=== PATIENT | female | born 1985 | race Asian ===

== ENCOUNTER 2017-05-25 14:27 | Emergency (ER) | payer SELFPAY ==
[2017-05-25 14:38] VITALS: BP 107/67
[2017-05-25 15:39] LABS: Urine Bacteria Absent (Absent); Urine Bilirubin Negative (Negative); Urine Glucose Negative (Negative); Urine Nitrite Negative (Negative)
--- NOTE | 2017-05-25 16:36 | RAD ---
Indication: 6 weeks 4 days gestation based on April 09, 2017 LMP. No pole conspicuous on outside ultrasound. Assess for ectopic . Comparison: No relevant prior exams available on the [facility] PACS for comparison. Technique: Transvaginal obstetrical ultrasound. Report: Solitary intrauterine gestational sac visualized deviated to the LEFT margin of the endometrium at the fundus with mean diameter of 2.4 cm corresponding to 7 weeks 4 days gestation. 0.51 cm solitary pole corresponding to 6 weeks 2 days gestation. Unremarkable 0.36 cm diameter yolk sac. movement and cardiac activity visualized with heart rate measuring 120 bpm. Small perigestational hemorrhage evident at the posterior aspect measuring up to 0.9 x 0.8 x 2.3 cm. 3. 0.3 x 1.4 x 2.5 cm RIGHT ovary with documented vascular flow is unremarkable. 3.1 x 2.0 x 1.4 cm LEFT ovary with documented vascular flow is remarkable for a unilocular 2.1 x 2.0 x 2.0 cm anechoic cyst likely representing a corpus luteum. No visualized extra ovarian adnexal region lesions evident. IMPRESSION: Solitary live intrauterine gestation with estimated gestational age of 6 weeks 4 days (AUA) and corresponding JUAN PABLO based on the ultrasound dating of January 11, 2018. Small perigestational hemorrhage. Borderline low heart rate for which clinical surveillance is suggested. Probable 2.1 cm corpus luteum cyst at the LEFT ovary. No suspicious extraovarian adnexal region lesions evident.
--- NOTE | 2017-05-25 16:57 | ED ---
- HPI Summary HPI Summary: 31F at 7w4d LMP 04/09/17 presents for u/s to r/o ectopic . had an u /s outpatient and showed abnormality on u/s so she in for u/s. Denies any abdominal pain or bleeding. denies any n/v/d/c. denies any dysuria, hematuria, flank pain, frequency, or urgency. does not have a obgyn. is returning to [facility] on Monday. - History of Current Complaint Chief Complaint: EDGeneral Stated Complaint: 7 WKS PREG/LOSE OF APPETITE/TIRED Time Seen by Provider: 05/25/17 15:00 Pain Intensity: 0 - Allergies/Home Medications Allergies/Adverse Reactions: Allergies Allergy/AdvReac Type Severity Reaction Status Date / Time No Known Allergies Allergy Verified 05/25/17 14:38 PMH/Surg Hx/FS Hx/Imm Hx Endocrine/Hematology History: Denies: Hx Anticoagulant Therapy Cardiovascular History: Denies: Hx Hypertension Infectious Disease History: No Infectious Disease History: Denies: Traveled Outside the in Last 30 Days - Family History Known Family History: Negative: Cardiac Disease - Social History Alcohol Use: None Substance Use Type: Reports: None Smoking Status (MU): Never Smoked Tobacco Review of Systems Negative: Fever Negative: Chest Pain Negative: Shortness Of Breath Negative: Abdominal Pain All Other Systems Reviewed And Are Negative: Yes Physical Exam - Physical Exam Triage Information Reviewed: Yes Vital Signs Reviewed: Yes Appearance: Positive: Well-Appearing Skin: Positive: Warm, Dry Head/Face: Positive: Normal Head/Face Inspection Eyes: Positive: Normal, Conjunctiva Clear Respiratory/Lung Sounds: Positive: Clear to Auscultation, Breath Sounds Present Cardiovascular: Positive: Normal, RRR Abdomen Description: Positive: Nontender, Soft Bowel Sounds: Positive: Present Diagnostics - Vital Signs Vital Signs Temp Pulse Resp BP Pulse Ox 05/25/17 14:31 99.0 F 71 15 107/67 100 - Laboratory Lab Results: Lab Results 05/25/17 05/25/17 Range/Units 15:25 15:30 Urine Color Straw Urine Appearance Clear Urine pH 6.0 (5-9) Ur Specific [place] 1.008 L (1.010-1.030) Urine Protein Negative (Negative) Urine Ketones Negative (Negative) Urine Blood Negative (Negative) Urine Nitrate Negative (Negative) Urine Bilirubin Negative (Negative) Urine Urobilinogen Negative (Negative) Ur Leukocyte Esterase Trace H (Negative) Urine WBC (Auto) Trace(0-5/hpf) (Absent) Urine RBC (Auto) Trace(0-2/hpf) (Absent) Ur Squamous Epith Cells Present H (Absent) Urine Bacteria Absent (Absent) Urine Glucose Negative (Negative) Urine Ascorbic Acid * H (Negative) Blood Type A Positive Lab Statement: Any lab studies that have been ordered have been reviewed, and results considered in the medical decision making process. - Ultrasound No standard instances Ultrasound Interpretation: Positive (See Comments) - IMPRESSION: Solitary live intrauterine gestation with estimated gestational age of 6 weeks 4 days (AUA) and corresponding JUAN PABLO based on the ultrasound dating of January 11, 2018. Small perigestational hemorrhage. Borderline low heart rate for which clinical surveillance is suggested. Probable 2.1 cm corpus luteum cyst at the LEFT ovary. No suspicious extraovarian adnexal region lesions evident. Ultrasound Interpretation Completed By: Radiologist Course/Dx - Course Course Of Treatment: 1F at 7w4d LMP 04/09/17 presents for u/s to r/o ectopic . had an u/s outpatient and showed abnormality on u/s so she in for u/s. Denies any abdominal pain or bleeding. denies any n/v/d/c. denies any dysuria, hematuria, flank pain, frequency, or urgency. abdominal nontender. u/s interuterine . [place] patient understands and agrees with plan - Differential Diagnosis/HQI/PQRI: Spontaneous , Threatened , Ectopic , Intrauterine - Diagnoses Provider Diagnoses: Intrauterine Discharge - Discharge Plan Condition: Good Disposition: HOME Patient Education Materials: First Trimester (ED) Referrals: Non Staff,Doctor [Primary Care Provider] - Additional Instructions: Follow up with obgyn next week Return to ED if develop any new or worsening symptoms
== END 2017-05-25 17:10 | disposition home or self-care (01) ==
LOC: ED 14:27
DX: Z34.91 Encounter for supervision of normal pregnancy, unspecified, first trimester (principal)
CPT/HCPCS: 36415; 76817; 81003; 81015; 84702; 86900; 86901; 87086; 99281